=== PATIENT | female | born 1990 | race Caucasian/White ===

== ENCOUNTER 2017-02-19 12:14 | Inpatient (IN) | payer MEDICAID, OTHER ==
[2017-02-19] VITALS (14 sets, daily range): BP systolic 105–119; BP diastolic 51–72; PULSE 63–83; RESP 14–18; TEMP 97.9–98.9
[~2017-02-19] VITALS: Ht 154.9 cm; Wt 91.0 kg
[~2017-02-19 12:14] MED LIST: PREN1CAP33 PO
[2017-02-19] MEDS ORDERED: LIDOCAINE HCL 1% 50 ML VIAL I-DERMAL PRN (12:45)
[2017-02-19] MEDS ORDERED: CITRIC ACID-SODIUM CITRATE LIQ 30 ML UDC PO SCH (12:45)
[2017-02-19] MEDS ORDERED: MINERAL OIL 10 ML VIAL TOPICAL PRN (12:45)
[2017-02-19] MEDS ORDERED: LIDOCAINE HCL 1% 50 ML VIAL INFIL PRN (12:45)
[2017-02-19] MEDS ORDERED: LACTATED RINGER'S 1000 ML INJ 1,000 ML IV PRN (12:45)
[2017-02-19] MEDS: OXYTOCIN 30 UNITS-500ML PREMIX 500 ML IV ONE (12:45)
[2017-02-19] MEDS ORDERED: SODIUM CHLORID 0.9% 500 ML INJ 500 ML IV PRN (12:45)
--- NOTE | 2017-02-19 12:48 | PD ---
HPI Chief Complaint Leaking fluid Date Seen: Feb 19, 2017 (Kristi Martin MD, R3) Travel History International Travel<30 Days: No Contact w/Intl Traveler<30Days: No Known Affected Area: No (Kristi Martin MD, R3) History of Present Illness HPI Patient is a 26 year old at 39-6/7 weeks gestation who presents today for leaking fluid that started around 10:45 this morning. She also notes light vaginal bleeding and occasional contractions. care with [facility]. No complications with this . (Kristi Martin MD, R3) History Past Medical History Medical History: Denies Significant Hx (Kristi Martin MD, R3) Obstetric History Obstetric History (Kristi Martin MD, R3) Past Surgical History Surgical History: No Previous Surgery (Kristi Martin MD, R3) Family History Family History: Negative (Kristi Martin MD, R3) Social History Alcohol Use: No Tobacco Use: No Substance Abuse: No (Kristi Martin MD, R3) Allergies-Medications (Allergen,Severity, Reaction): Coded Allergies: No Known Allergies (Unverified , 02/19/17) Home Meds Reported Medications [no current meds] No Conflict Check 02/19/17 Discontinued Scripts Vit W/ Fe Polysacch C (Vitafol Fe+ 90-1-200 & 50 mg) 1 Cap Cap, 1 TAB PO DAILY, #30 BOTTLE 11 Refills Prov:Antoinette Banerjee 08/13/16 Review of Systems Except as stated in HPI: all other systems reviewed are Neg General / Constitutional: No: Fever, Chills Eyes: No: Blurred Vision, Visual changes HENT: No: Headaches Cardiovascular: No: Chest Pain or Discomfort, Palpitations Respiratory: No: Cough, Short of Breath Gastrointestinal: No: Nausea, Vomiting, Abdominal Pain Genitourinary: Discharge, No: Dysuria, Hematuria, Pelvic Pain, Vaginal Bleeding Musculoskeletal: No: Edema Neurologic: No: Headache Psychiatric: No: Substance Abuse (Kristi Martin MD, R3) Physical Exam Narrative GENERAL: Well-nourished, well-developed patient. SKIN: Warm and dry. HEAD: Normocephalic and atraumatic. EYES: No scleral icterus. No injection or drainage. ENT: No nasal drainage noted. Mucous membranes pink. Airway patent. NECK: Supple, trachea midline. No JVD. CARDIOVASCULAR: Regular rate and rhythm without murmurs, gallops, or rubs. RESPIRATORY: Breath sounds equal bilaterally. No accessory muscle use. ABDOMEN/GI: Abdomen soft, non-tender, bowel sounds present, no rebound, no guarding Gravid to 39 weeks size GENITOURINARY: External Genitalia: intact and normal in appearance BUS glands: normal Cervix: posterior Dilatation: I Effacement: 50 Station: -2 Presentation: vertex Membranes: SROM, clear Uterine Contractions: occasional FHT's: Category: I Baseline: 140 Reactive: + Variability: moderate Decels: none EXTREMITIES: No cyanosis or edema. BACK: Nontender without obvious deformity. No CVA tenderness. NEUROLOGICAL: Awake and alert. Motor and sensory grossly within normal limits. Normal speech. (Kristi Martin MD, R3) Data Data Vital Signs Reviewed: Yes Group B Strep: Negative (Kristi Martin MD, R3) MDM Medical Record Reviewed: Yes Narrative Course / MDM 26 year old at 39-6/7 weeks gestation. 1. IUP- Category I tracing, reassuring. 2. Labor- SROM, will start Cytotec for cervical ripening. 3. GBS negative. dw Dr. Dodd (Kristi Martin MD, R3) Attending Attestation Patient seen and evaluated with resident under direct supervision, agree with assessment and plan. (Michele Dodd MD) Kristi Martin MD, R3 Feb 19, 2017 12:48 Michele Dodd MD Feb 19, 2017 18:29
[2017-02-19] MEDS ORDERED: SODIUM CHLOR 0.9% 1000 ML INJ 1,000 ML OTHER PRN (12:56)
[2017-02-19] MEDS ORDERED: SODIUM CHLORIDE 0.9% FLUSH 10 ML FLUSH IV FLUSH PRN (13:00)
[2017-02-19] MEDS ORDERED: SODIUM CHLOR 0.9% 1000 ML INJ 1,000 ML IV PRN (13:05)
[2017-02-19] MEDS ORDERED: no current meds (13:41)
[2017-02-19] MEDS: LACTATED RINGER'S 1000 ML INJ 1,000 ML IV SCH ×2 (13:55→20:45)
[2017-02-19] MEDS ORDERED: MISOPROSTOL 25 MCG SUPP VAGINAL ONE (14:00)
[2017-02-19 14:04] LABS: AUTOMATED NEUTROPHIL # 6.1 TH/MM3 (1.8-7.7); BASOPHIL % 0.2 % (0.0-2.0); EOSINOPHIL # 0.1 TH/MM3 (0-0.4); EOSINOPHIL % 0.7 % (0.0-4.0); HEMATOCRIT 30.9 % (35.0-46.0); HEMO FLAGS DIFF FINAL; LYMPH % 22.6 % (9.0-44.0); LYMPHOCYTE # 1.9 TH/MM3 (1.0-4.8); MEAN CELL VOLUME 77.2 FL (80.0-100.0); MEAN CORPUSCULAR HGB CONC 32.4 % (32.0-36.0); MONO % 4.8 % (0.0-8.0); NEUT % 71.7 % (16.0-70.0); PLATELET COUNT 324 TH/MM3 (150-450); RED CELL DISTRIBUTION WIDTH 15.7 % (11.6-17.2); WHITE BLOOD COUNT 8.4 TH/MM3 (4.0-11.0)
[2017-02-19 15:08] LABS: BLOOD, URINE SMALL (NEG); COMMENT (UR) CULT NOT INDICATED; CULTURE IF INDICATED CULT NOT INDICATED; GLUCOSE,URINE NEG (NEG); KETONE, URINE NEG (NEG); NITRITE,URINE NEG (NEG); PH, URINE 5.5 (5.0-8.5); SQUAMOUS EPITHELIAL CELL URINE <1 /hpf (0-5); URINE COLOR LIGHT-YELLOW (YELLW/STRAW)
[2017-02-19] MEDS ORDERED: MISOPROSTOL 25 MCG SUPP VAGINAL PRN ×2 (18:00→21:00)
[2017-02-19] MEDS: SODIUM CHLORIDE 0.9% FLUSH 10 ML FLUSH IV FLUSH SCH (21:00)
[2017-02-20] VITALS (67 sets, daily range): BP systolic 89–142; BP diastolic 54–89; PULSE 63–154; RESP 16–20; TEMP 97.8–99.2; O2SAT 99–100
[2017-02-20] MEDS ORDERED: OXYTOCIN 30 UNITS-500ML PREMIX 500 ML IV SCH (00:45)
[2017-02-20] MEDS: OXYTOCIN 30 UNITS-500ML PREMIX 500 ML IV ONE (01:39)
[2017-02-20] MEDS: LACTATED RINGER'S 1000 ML INJ 1,000 ML IV SCH ×2 (05:27→12:45)
--- NOTE | 2017-02-20 08:58 | PD.LABORPN ---
Subjective Subjective The patient reports increasing contraction intensity. She declines pain medication at this time. Objective Vital Signs Vital Signs Date Time Temp Pulse Resp B/P (MAP) Pulse Ox O2 Delivery O2 Flow Rate FiO2 02/20/17 08:15 17 02/20/17 08:00 98.7 02/20/17 07:11 18 02/20/17 07:01 73 142/77 (98) 02/20/17 06:00 63 121/71 (88) 02/20/17 05:30 98.2 02/20/17 05:00 69 104/67 (79) 02/20/17 04:31 63 116/60 (78) 02/20/17 04:01 71 02/20/17 04:00 16 02/20/17 03:33 98.1 02/20/17 03:31 71 108/57 (74) 02/20/17 03:01 72 127/63 (84) 02/20/17 02:36 67 107/62 (77) 02/20/17 02:00 67 116/69 (85) 02/20/17 02:00 97.8 02/20/17 01:41 17 02/20/17 01:34 76 107/58 (74) 02/20/17 01:00 63 115/57 (76) Objective Pelvic Exam: Cervix: [IUPC placed-] Dilatation: [Four-] Effacement: [-90] Station: [-2-] Presentation: [Vertex-] Membranes: [ ruptured] Uterine Contractions: [Every 3-] FHT's: Category: [1-] Baseline: [-] Reactive: [-] Variability: [-] Decels: [-] Weeks Gestation: 40 Gest Age Assessed Date: Feb 20, 2017 Gest Age Assessed Time: 08:57 Pt started active labor?: No Medical induction of labor?: No Artificial rupture of membrane: No Assessment/Plan Assessment and Plan Assessment: Primigravida at 40 weeks' gestation today undergoing medical augmentation after spontaneous rupture membranes yesterday. Plan: Continue Pitocin augmentation. Michele Dodd MD Feb 20, 2017 08:58
[2017-02-20] MEDS: SODIUM CHLORIDE 0.9% FLUSH 10 ML FLUSH IV FLUSH SCH (09:00)
[2017-02-20] MEDS ORDERED: fentaNYL 2MCG-BUPIV 0.125% INJ 100 ML ONE (11:16)
[2017-02-20] MEDS ORDERED: ePHEDrine/NS 25 MG/5 ML SYR ONE (11:16)
[2017-02-20] MEDS ORDERED: TERBUTALINE INJ 1 MG/ML AMP ONE (12:32)
[2017-02-20] MEDS ORDERED: OXYTOCIN 10 UNIT/ML AMP ONE (12:45)
[2017-02-20] MEDS ORDERED: ceFAZolin INJ 1,000 MG VIAL ONE (12:46)
[2017-02-20 13:30] LABS: BLOOD GAS BASE EXCESS -5.5 mmol/L (-2-2); BLOOD GAS O2 HGB SATURATION 43 % (90-100); CORD BLOOD GAS HCO3 21 mmol/L (21-29); CORD BLOOD GAS PCO2 58 mmHG (34-78); CORD BLOOD GAS PH 7.19 (7.14-7.42); CORD BLOOD GAS PO2 27 mmHG (3.0-40.0); DRAW SITE CORD; STAT YES
[2017-02-20] MEDS ORDERED: OXYTOCIN 30 UNITS-500ML PREMIX 500 ML IV ONE (13:30)
[2017-02-20] MEDS ORDERED: SODIUM CHLORIDE 0.9% FLUSH 10 ML FLUSH IV FLUSH PRN (13:30)
[2017-02-20] MEDS ORDERED: ACETAMINOPHEN 1000 MG/100 ML 100 ML IV ONE (13:37)
[2017-02-20] MEDS ORDERED: fentaNYL CITRATE 250 MCG/5 ML AMP ONE (13:39)
[2017-02-20] MEDS ORDERED: MORPHINE SULFATE PF 5 MG/10 ML VIAL ONE (13:40)
[2017-02-20] MEDS ORDERED: ACETAMINOPHEN 325 MG TAB PO PRN (14:00)
[2017-02-20] MEDS ORDERED: KETOROLAC TROMETHAMINE 60 MG/2 ML (IM) VIAL IM PRN (14:00)
[2017-02-20] MEDS ORDERED: ONDANSETRON HCL 4 MG/2 ML VIAL IV PUSH PRN (14:00)
[2017-02-20] MEDS ORDERED: oxyCODONE/ACETAMINOPHEN 5 MG/325 MG TAB PO PRN (14:00)
--- NOTE | 2017-02-20 14:17 | RADRPT ---
EXAM DATE/TIME: 02/20/2017 13:01 [place] COMPARISON: No previous studies available for comparison. INDICATIONS : Instrument count , stat c/section. MEDICAL HISTORY : None. SURGICAL HISTORY : ENCOUNTER: Initial ACUITY: 1 day PAIN SCORE: Non-responsive. LOCATION: Bilateral abdominal FINDINGS: Supine view of the abdomen was performed. The abdominal bowel gas pattern is normal. No abnormal ma sses, calcifications, or organomegaly is seen. The osseous structures are unremarkable. CONCLUSION: No retained displacements or sponge. Findings were communicated by me to the operati ng room staff.. Hunter London MD FACR on February 20, 2017 at 14:15 Board Certified Radiologist. This report was verified electronically.
[2017-02-20] MEDS ORDERED: DEXAMETHASONE SOD PHOS 4 MG/ML VIAL IV ONE (14:20)
[2017-02-20] MEDS ORDERED: ONDANSETRON HCL 4 MG/2 ML VIAL IV PUSH ONE (14:20)
[2017-02-20] MEDS ORDERED: METOCLOPRAMIDE HCL SYRUP 10 MG/10 ML UDC OG-TUBE ONE (14:20)
[2017-02-20] MEDS ORDERED: LACTATED RINGER'S 1,000 ML BAG IV ONE (14:20)
[2017-02-20] MEDS ORDERED: EPIDURAL-DIPHENHYDRAMINE HCL 50 MG/ML VIAL IV PUSH PRN (16:30)
[2017-02-20] MEDS ORDERED: EPIDURAL-DIPHENHYDRAMINE HCL 50 MG CAP PO PRN (16:30)
[2017-02-20] MEDS ORDERED: EPIDURAL-DO NOT ADMINISTER ANTICOAGULANTS PRN (16:30)
[2017-02-20] MEDS ORDERED: EPIDURAL-NALOXONE HCL 0.4 MG/ML AMP IV PRN (16:30)
[2017-02-20] MEDS ORDERED: EPIDURAL-NO SYSTEMIC NARCOTICS PRN (16:30)
[2017-02-20] MEDS ORDERED: LACTATED RINGER'S 1000 ML INJ 1,000 ML IV SCH (18:24)
[2017-02-20] MEDS ORDERED: ZOLPIDEM TARTRATE 5 MG TAB PO PRN (21:00)
[2017-02-20] MEDS ORDERED: OXYTOCIN 30 UNITS-500ML PREMIX 500 ML IV PRN (23:30)
[2017-02-21] MEDS: IBUPROFEN 600 MG TAB PO PRN ×3 (01:12→19:55)
[2017-02-21] MEDS: oxyCODONE/ACETAMINOPHEN 5 MG/325 MG TAB PO PRN ×3 (01:12→19:56)
[2017-02-21 03:11] VITALS: BP 94/50; PULSE 80; RESP 20; TEMP 98.3; TEMP 98.7
[2017-02-21 08:13] VITALS: BP 91/54; PULSE 70; RESP 18; TEMP 97.7
--- NOTE | 2017-02-21 08:21 | HHI.OB ---
Subjective Post Operative Day: 1 Remarks POD 1 AF VSS pt doing well no problems , tolerating diet , ambulating Objective Vitals/I&O Vital Signs Date Time Temp Pulse Resp B/P (MAP) Pulse Ox O2 Delivery O2 Flow Rate FiO2 02/21/17 03:11 80 94/50 (65) 02/21/17 03:11 98.3 20 02/21/17 03:11 98.7 02/20/17 23:33 98.7 101 18 105/54 (71) 02/20/17 19:38 99.2 80 16 100/54 (69) 02/20/17 16:15 97.8 86 18 02/20/17 16:15 106/63 (77) 02/20/17 15:44 19 02/20/17 15:44 80 110/57 (74) 02/20/17 15:30 108/58 (75) 02/20/17 15:29 16 02/20/17 15:15 98.5 02/20/17 15:15 80 18 116/59 (78) 99 02/20/17 15:00 91 20 116/57 (76) 99 02/20/17 14:45 99 02/20/17 14:45 76 18 107/57 (74) 02/20/17 14:30 115/57 (76) 02/20/17 14:30 78 02/20/17 14:28 16 100 02/20/17 14:15 115/58 (77) 02/20/17 14:15 90 17 100 02/20/17 14:00 80 118/59 (78) 100 02/20/17 14:00 17 02/20/17 13:35 89 18 118/59 (78) 02/20/17 13:35 100 02/20/17 13:35 97.8 02/20/17 12:31 66 121/62 (81) 02/20/17 12:30 74 02/20/17 12:20 69 02/20/17 12:20 80 112/58 (76) 02/20/17 12:17 80 107/54 (71) 02/20/17 12:16 78 89/60 (70) 02/20/17 12:15 78 02/20/17 12:11 70 118/64 (82) 02/20/17 12:10 88 02/20/17 12:05 95 02/20/17 12:05 93 115/63 (80) 02/20/17 12:00 81 02/20/17 12:00 104/58 (73) 02/20/17 12:00 84 02/20/17 11:56 71 18 107/61 (76) 02/20/17 11:55 73 02/20/17 11:51 94 131/58 (82) 02/20/17 11:50 87 02/20/17 11:45 81 02/20/17 11:45 84 120/71 (87) 02/20/17 11:41 87 114/67 (83) 02/20/17 11:40 76 02/20/17 11:39 85 123/55 (77) 02/20/17 11:35 72 02/20/17 11:32 20 02/20/17 11:31 73 132/69 (90) 02/20/17 11:30 75 02/20/17 11:11 19 02/20/17 11:01 76 119/77 (91) 02/20/17 10:45 17 02/20/17 10:31 154 112/89 (97) 02/20/17 10:17 67 111/63 (79) 02/20/17 10:01 82 95/63 (74) 02/20/17 10:00 97.9 02/20/17 09:43 18 02/20/17 09:04 17 02/20/17 09:00 18 02/20/17 09:00 68 106/68 (81) 02/20/17 08:45 18 02/20/17 08:39 72 110/68 (82) Result Diagram: 02/19/17 1330 Objective Remarks GENERAL: Well-nourished, well-developed patient. CARDIOVASCULAR: Regular rate and rhythm without murmurs, gallops, or rubs. RESPIRATORY: Breath sounds equal bilaterally. No accessory muscle use. ABDOMEN/GI: Abdomen soft, non-tender, bowel sounds present. Incision: Clean, dry and intact. Fundus: Firm, non-tender at umbilicus. GENITOURINARY: Light to moderate bleeding. EXTREMITIES: No cyanosis or edema, non-tender, without signs of DVT. Medications and IVs Current Medications Medications (Trade) Dose Ordered Sig/Geovani Route Start Time Stop Time Status Last Admin Lactated Ringer's 1,000 ml @ 125 mls/hr Q8H IV 02/19/17 12:45 02/20/17 05:27 Lactated Ringer's 1,000 ml @ 3,000 mls/hr Q20M PRN IV 02/19/17 12:45 Sodium Chloride 500 ml @ 1,000 mls/hr ONCE PRN IV 02/19/17 12:45 02/21/17 12:44 Sodium Chloride 1,000 ml @ 100 mls/hr Q10H PRN IV 02/19/17 13:05 (Xylocaine 1% Inj (50 ml)) 0.1 ml UNSCH X1 PRN I-DERMAL 02/19/17 12:45 02/22/17 12:44 (Bicitra Liq) 30 ml [employer] PO 02/19/17 12:45 02/23/17 12:44 (fentaNYL INJ) 50 mcg Q1H PRN IV PUSH 02/19/17 12:45 02/20/17 07:08 (fentaNYL INJ) 100 mcg Q1H PRN IV PUSH 02/19/17 12:45 02/20/17 10:18 (Xylocaine 1% Inj (50 ml)) 10 ml UNSCH X1 PRN INFIL 02/19/17 12:45 02/21/17 12:44 (Muri-Lube Oil) 10 ml UNSCH PRN TOPICAL 02/19/17 12:45 (NS Flush) 2 ml BID IV FLUSH 02/19/17 21:00 (NS Flush) 2 ml UNSCH PRN IV FLUSH 02/19/17 13:00 Oxytocin 500 ml @ 0 mls/hr TITRATE IV 02/20/17 00:45 02/20/17 05:21 Lactated Ringer's 1,000 ml @ 100 mls/hr Q10H IV 02/20/17 18:24 02/21/17 14:23 02/20/17 21:17 Oxytocin 500 ml @ 100 mls/hr UNSCH X1 PRN IV 02/20/17 23:30 02/21/17 23:29 (NS Flush) 2 ml BID IV FLUSH 02/20/17 21:00 (NS Flush) 2 ml UNSCH PRN IV FLUSH 02/20/17 13:30 (Mylicon Chew) 80 mg QID PRN PO 02/20/17 14:00 (Tylenol) 650 mg Q6H PRN PO 02/20/17 14:00 (Motrin) 600 mg Q6HR PRN PO 02/20/17 14:00 02/21/17 01:12 (Toradol Inj) 30 mg Q6H PRN IM 02/20/17 14:00 02/21/17 13:59 (Percocet 5-325 Mg) 1 tab Q4H PRN PO 02/20/17 14:00 (Percocet 5-325 Mg) 2 tab Q4H PRN PO 02/20/17 14:00 02/21/17 01:12 (Yojana-Colace) 2 tab Q12HR PRN PO 02/20/17 21:00 (Ambien) 5 mg HS PRN PO 02/20/17 21:00 (M-M-R Ii Inj) 0.5 ml ONCE ONCE SQ 02/21/17 16:00 02/21/17 16:01 (Boostrix Inj) 0.5 ml ONCE ONCE IM 02/21/17 16:00 02/21/17 16:01 (Zofran Inj) 4 mg Q6H PRN IV PUSH 02/20/17 14:00 Miscellaneous Information NO SYSTEMIC NARCOTICS TO BE GIVEN FO... UNSCH PRN .XX 02/20/17 16:30 02/21/17 16:29 (Narcan Inj) 0.4 mg UNSCH PRN IV 02/20/17 16:30 02/21/17 16:29 (Benadryl Inj) 25 mg Q6H PRN IV PUSH 02/20/17 16:30 02/21/17 16:29 (Benadryl) 50 mg Q6H PRN PO 02/20/17 16:30 02/21/17 16:29 Miscellaneous Information ALL NURSING DEPARTMENTS UNSCH PRN .XX 02/20/17 16:30 02/21/17 16:29 Assessment/Plan Assessment and Plan Postop day 1. due to bradycardia persistent Patient doing well this time with advancement of diet and ambulation bandages dry bowel sounds are normal Plan progressive postop care and advancement per usual protocol plan probably discharge home tomorrow Drew David II, MD Feb 21, 2017 08:21
[2017-02-21 09:30] LABS: AUTOMATED NEUTROPHIL # 10.3 TH/MM3 (1.8-7.7); BASOPHIL % 0.2 % (0.0-2.0); EOSINOPHIL % 0.1 % (0.0-4.0); HEMATOCRIT 22.6 % (35.0-46.0); HEMO FLAGS DIFF FINAL; LYMPH % 21.1 % (9.0-44.0); MEAN CELL VOLUME 77.3 FL (80.0-100.0); MEAN CORPUSCULAR HEMOGLOBIN 25.2 PG (27.0-34.0); MEAN CORPUSCULAR HGB CONC 32.7 % (32.0-36.0); NEUT % 71.6 % (16.0-70.0); PLATELET COUNT 273 TH/MM3 (150-450); RED BLOOD COUNT 2.92 MIL/MM3 (4.00-5.30); WHITE BLOOD COUNT 14.4 TH/MM3 (4.0-11.0)
[2017-02-21] MEDS: DOCUSATE SODIUM 50 MG/SENNA 8.6 MG TAB PO PRN (10:45)
[2017-02-21] MEDS ORDERED: MEASLES, MUMPS, RUBELLA VACCINE 0.5 ML VIAL SQ ONE (16:00)
[2017-02-21] MEDS ORDERED: DIPHTH/TETANUS/ACEL PERTUSSIS (BOOSTER) 0.5 ML VIAL/PFS IM ONE (16:00)
[2017-02-21] MEDS: SIMETHICONE 80 MG CHEWABLE TAB PO PRN (20:03)
[2017-02-21] MEDS: SODIUM CHLORIDE 0.9% FLUSH 10 ML FLUSH IV FLUSH SCH ×2 (20:33)
[2017-02-21] MEDS: LACTATED RINGER'S 1000 ML INJ 1,000 ML IV SCH (20:33)
[2017-02-21 21:20] VITALS: BP 111/60; PULSE 94; RESP 18; TEMP 98.4
[2017-02-22] MEDS: LACTATED RINGER'S 1000 ML INJ 1,000 ML IV SCH ×2 (03:55→20:45)
[2017-02-22] MEDS: IBUPROFEN 600 MG TAB PO PRN ×3 (05:37→23:12)
[2017-02-22] MEDS: DOCUSATE SODIUM 50 MG/SENNA 8.6 MG TAB PO PRN ×2 (05:37→23:12)
[2017-02-22] MEDS: oxyCODONE/ACETAMINOPHEN 5 MG/325 MG TAB PO PRN ×3 (05:37→23:13)
[2017-02-22] MEDS: SIMETHICONE 80 MG CHEWABLE TAB PO PRN (05:38)
[2017-02-22 07:30] VITALS: BP 118/79; PULSE 98; RESP 16; TEMP 98.3
--- NOTE | 2017-02-22 09:29 | HHI.OB ---
Subjective Post Operative Day: 2 Remarks Postoperative day number 2. AFVSS overnight. Pain enema. Incision not draining. Decreased lochia. Denies dysuria. No breast tenderness. Appetite good. No nausea or vomiting. [-] flatus. [-] bowel movement. Ambulating well. Denies calf pain, shortness of breath, or cough. Otherwise, she is doing well this morning and has no other complaints. Objective Vitals/I&O Vital Signs Date Time Temp Pulse Resp B/P (MAP) Pulse Ox O2 Delivery O2 Flow Rate FiO2 02/22/17 07:30 98.3 98 16 118/79 (92) 02/21/17 21:20 98.4 94 18 111/60 (77) Result Diagram: 02/21/17 0911 Objective Remarks GENERAL: Well-nourished, well-developed patient. CARDIOVASCULAR: Regular rate and rhythm without murmurs, gallops, or rubs. RESPIRATORY: Breath sounds equal bilaterally. No accessory muscle use. ABDOMEN/GI: Abdomen soft, non-tender, bowel sounds present. Incision: Clean, dry and intact. Fundus: Firm, non-tender at umbilicus. GENITOURINARY: Light to moderate bleeding. EXTREMITIES: No cyanosis or edema, non-tender, without signs of DVT. Medications and IVs Current Medications Medications (Trade) Dose Ordered Sig/Geovani Route Start Time Stop Time Status Last Admin Lactated Ringer's 1,000 ml @ 125 mls/hr Q8H IV 02/19/17 12:45 02/20/17 05:27 Lactated Ringer's 1,000 ml @ 3,000 mls/hr Q20M PRN IV 02/19/17 12:45 Sodium Chloride 1,000 ml @ 100 mls/hr Q10H PRN IV 02/19/17 13:05 (Xylocaine 1% Inj (50 ml)) 0.1 ml UNSCH X1 PRN I-DERMAL 02/19/17 12:45 02/22/17 12:44 (Bicitra Liq) 30 ml DOG WARDEN PO 02/19/17 12:45 02/23/17 12:44 (fentaNYL INJ) 50 mcg Q1H PRN IV PUSH 02/19/17 12:45 02/20/17 07:08 (fentaNYL INJ) 100 mcg Q1H PRN IV PUSH 02/19/17 12:45 02/20/17 10:18 (Muri-Lube Oil) 10 ml UNSCH PRN TOPICAL 02/19/17 12:45 (NS Flush) 2 ml BID IV FLUSH 02/19/17 21:00 (NS Flush) 2 ml UNSCH PRN IV FLUSH 02/19/17 13:00 Oxytocin 500 ml @ 0 mls/hr TITRATE IV 02/20/17 00:45 02/20/17 05:21 (NS Flush) 2 ml BID IV FLUSH 02/20/17 21:00 (NS Flush) 2 ml UNSCH PRN IV FLUSH 02/20/17 13:30 (Mylicon Chew) 80 mg QID PRN PO 02/20/17 14:00 02/22/17 05:38 (Tylenol) 650 mg Q6H PRN PO 02/20/17 14:00 (Motrin) 600 mg Q6HR PRN PO 02/20/17 14:00 02/22/17 05:37 (Percocet 5-325 Mg) 1 tab Q4H PRN PO 02/20/17 14:00 (Percocet 5-325 Mg) 2 tab Q4H PRN PO 02/20/17 14:00 02/22/17 05:37 (Yojana-Colace) 2 tab Q12HR PRN PO 02/20/17 21:00 02/22/17 05:37 (Ambien) 5 mg HS PRN PO 02/20/17 21:00 (Zofran Inj) 4 mg Q6H PRN IV PUSH 02/20/17 14:00 Assessment/Plan Assessment and Plan 26 y/o female who is POD# 2 s/p CXN due to persistent bradycardia. -Continue routine care. -Percocet and Motrin PRN pain. -Encouraged OOB. Advised pelvic rest for 6 wks. Will need a f/u appt. in 1 wk for incision check. -Re: ctrl, she would like OCP, pt will discuss with her outpatient OB. -D/c today/tomorrow. [facility] OB attending Sylwia Cisneros MD R1 Feb 22, 2017 09:29
[2017-02-22] MEDS: SODIUM CHLORIDE 0.9% FLUSH 10 ML FLUSH IV FLUSH SCH ×2 (20:50)
[2017-02-22 21:00] VITALS: BP 109/58; PULSE 86; RESP 20; TEMP 98.9
[2017-02-23] MEDS: LACTATED RINGER'S 1000 ML INJ 1,000 ML IV SCH (04:04)
--- NOTE | 2017-02-23 07:39 | MP ---
cc: CÉSAR DAVID MD DATE OF SURGERY 02/20/2017 PREOPERATIVE DIAGNOSIS Term intrauterine with spontaneous rupture of membranes and induction of labor with bradycardia persistent. POSTOPERATIVE DIAGNOSIS Term intrauterine with spontaneous rupture of membranes and induction of labor with bradycardia persistent. PROCEDURE PERFORMED Emergent low transverse section. SURGEON César David MD ANESTHESIA Epidural PREOP NOTE The patient is a 26-year-old G1, P0 at 40-weeks who presented to labor and delivery with spontaneous rupture of membranes. She was 1-cm dilated at that time and a labor induction was begun. She contracted well and had internal monitors. She achieved a cervical dilation to 5-cm, but was persistently having fairly large variable decels with each contraction. Amnion infusion was attempted, but the patient developed a bradycardic episode that would not respond to any measures. After 7-8 minutes of this attempt to intrauterine resuscitate, it was felt the patient needed a section for delivery. PROCEDURE The patient was taken to the operating room in an emergent situation. General anesthetic was done in a rapid sequence induction. She was prepped and draped prior to intubation. A transverse incision was made in the abdomen and carried through the fascia sharply. The fascia was dissected off the rectus muscle and the rectus split in the midline. The incision was extended superiorly and inferiorly. The bladder blade was placed at the lower edge of the incision and the visceral peritoneum reflected down off the lower uterine segment placed on the bladder blade. A transverse hysterotomy was made and extended bluntly bilaterally. The baby was in OP presentation. Fluid was clear. The baby was delivered at 12:44 p.m. female, weight 3100 grams, 's 8 and 9. There were no complications with delivery. Cord blood pH was obtained and is pending at the time of this dictation. The placenta was manually extracted. The uterus exteriorized. The hysterotomy closed with a running layer of 0 chromic followed by imbricating suture of same. Hemostasis was achieved and the bladder reapproximated with running 2-0 Vicryl. Blood suctioned from the cul-de-sac gutters. The uterus, tubes and ovaries all within normal limits. The uterine was replaced in the peritoneal cavity. The parietoperitoneum closed in a running layer with of 2-0 Vicryl. The muscle reapproximated with stick-ties of Vicryl and chromic. The fascia was closed in a running layer of 0 Vicryl. The subcutaneous tissues were reapproximated with 3-0 plain suture and a running sutures. Skin closed with 4-0 Monocryl in the subcuticular stitch. Steri-Strips applied. ESTIMATED BLOOD LOSS 500 cc COMPLICATIONS There were no complications. Sponge, needle and instrument counts were correct x 2. The patient was taken to Recovery in stable condition. MD URIAH Mckinney/ADILSON /1:21 PM /7:22 AM
[2017-02-23 08:00] VITALS: BP 106/69; PULSE 81; RESP 16; TEMP 97.8
[2017-02-23] MEDS: IBUPROFEN 600 MG TAB PO PRN (08:03)
[2017-02-23] MEDS: DOCUSATE SODIUM 50 MG/SENNA 8.6 MG TAB PO PRN (08:03)
[2017-02-23] MEDS: oxyCODONE/ACETAMINOPHEN 5 MG/325 MG TAB PO PRN ×2 (08:05→12:01)
[2017-02-23] MEDS ORDERED: IBUP-232 PO (08:09)
[2017-02-23] MEDS ORDERED: OXYC1TAB63 PO (08:09)
[2017-02-23] MEDS ORDERED: SENN1TAB PO (08:09)
--- NOTE | 2017-02-23 08:10 | HHI.DCPOC ---
Discharge Care Plan Diagnosis: (1) Delivery by section of full-term infant Report Symptoms to Your Doctor -Temperature above 100.5 degrees -Redness, of incision or excessive or foul smelling drainage -Unusual pain or calf pain -Increased vaginal bleeding -Painful or difficulty urinating -Feelings of extreme sadness or anxiety after 2 weeks Goals to Promote Your Health * To prevent worsening of your condition and complications * To maintain your health at the optimal level Directions to Meet Your Goals Take your medications as prescribed Follow your dietary instruction Follow activity as directed Ensure plenty of rest for recovery Drink fluids for hydration Keep your appointments as scheduled Take your immunizations and boosters as scheduled If your symptoms worsen call your PCP, if no PCP go to Urgent Care Center or Emergency Room Smoking is Dangerous to Your Health. Avoid second hand smoke Call the 24-hour crisis hotline for domestic abuse at Jelani Zarate MD R2 Feb 23, 2017 08:10
--- NOTE | 2017-02-23 08:14 | HHI.OB ---
Subjective Post Operative Day: 3 Remarks Pt seen and examined this morning. Post-Operative day # 3 AFVSS overnight. Incision nondraining. Decreased lochia. Denies dysuria. No breast tenderness. She is feeding the baby via breast. Appetite good. No nausea or vomiting. Patient has not yet had a bowel movement, but has had bowel gas. She states that this is her baseline. Ambulating well. Denies calf pain or shortness of breath. Otherwise, she is doing well this morning and has no other concerns. Objective Vitals/I&O Vital Signs Date Time Temp Pulse Resp B/P (MAP) Pulse Ox O2 Delivery O2 Flow Rate FiO2 02/22/17 21:00 86 109/58 (75) 02/22/17 21:00 98.9 20 Result Diagram: 02/21/17 0911 Objective Remarks GENERAL: Well-nourished, well-developed patient. CARDIOVASCULAR: Regular rate and rhythm without murmurs, gallops, or rubs. RESPIRATORY: Breath sounds equal bilaterally. No accessory muscle use. ABDOMEN/GI: Abdomen soft, non-tender, bowel sounds present. Incision: Clean, dry and intact. Fundus: Firm, non-tender at umbilicus. GENITOURINARY: Light to moderate bleeding. EXTREMITIES: No cyanosis or edema, non-tender, without signs of DVT. Medications and IVs Current Medications Medications (Trade) Dose Ordered Sig/Geovani Route Start Time Stop Time Status Last Admin Lactated Ringer's 1,000 ml @ 125 mls/hr Q8H IV 02/19/17 12:45 02/20/17 05:27 Lactated Ringer's 1,000 ml @ 3,000 mls/hr Q20M PRN IV 02/19/17 12:45 Sodium Chloride 1,000 ml @ 100 mls/hr Q10H PRN IV 02/19/17 13:05 (Bicitra Liq) 30 ml [employer] PO 02/19/17 12:45 02/23/17 12:44 (fentaNYL INJ) 50 mcg Q1H PRN IV PUSH 02/19/17 12:45 02/20/17 07:08 (fentaNYL INJ) 100 mcg Q1H PRN IV PUSH 02/19/17 12:45 02/20/17 10:18 (Muri-Lube Oil) 10 ml UNSCH PRN TOPICAL 02/19/17 12:45 (NS Flush) 2 ml BID IV FLUSH 02/19/17 21:00 (NS Flush) 2 ml UNSCH PRN IV FLUSH 02/19/17 13:00 Oxytocin 500 ml @ 0 mls/hr TITRATE IV 02/20/17 00:45 02/20/17 05:21 (NS Flush) 2 ml BID IV FLUSH 02/20/17 21:00 (NS Flush) 2 ml UNSCH PRN IV FLUSH 02/20/17 13:30 (Mylicon Chew) 80 mg QID PRN PO 02/20/17 14:00 02/22/17 05:38 (Tylenol) 650 mg Q6H PRN PO 02/20/17 14:00 (Motrin) 600 mg Q6HR PRN PO 02/20/17 14:00 02/23/17 08:03 (Percocet 5-325 Mg) 1 tab Q4H PRN PO 02/20/17 14:00 (Percocet 5-325 Mg) 2 tab Q4H PRN PO 02/20/17 14:00 02/23/17 08:05 (Yojana-Colace) 2 tab Q12HR PRN PO 02/20/17 21:00 02/23/17 08:03 (Ambien) 5 mg HS PRN PO 02/20/17 21:00 (Zofran Inj) 4 mg Q6H PRN IV PUSH 02/20/17 14:00 Assessment/Plan Problem List: (1) Delivery by section of full-term infant ICD Codes: O82 - Encounter for delivery without indication Assessment and Plan 26 y/o female who is POD# 3 s/p CXN due to persistent bradycardia. -Continue routine care. -Percocet and Motrin PRN pain. -Encouraged OOB. Advised pelvic rest for 6 wks. Will need a f/u appt. in 1 wk for incision check. -Re: ctrl, she would like OCP, pt will discuss with her outpatient OB. -D/c today with baby DW: Dr. David Discharge Planning Today, 02/23 Jelani Zarate MD R2 Feb 23, 2017 08:14
[2017-03-29] MEDS ORDERED: ORTHTAB4 PO (14:25)
== END 2017-02-23 14:10 | disposition home or self-care (01) | DRG 766 ==
LOC: HOBED 12:14 → H2EA 12:58 → H1EA 02-20 16:08
PROVIDERS: ADMIT Obstetrics & Gynecology; ATTEND Obstetrics & Gynecology
PROC: 10D00Z1 Extraction of Products of Conception, Low, Open Approach (ICD-10-PCS; principal; 2017-02-20)
PROC: 3E0E77Z Introduction of Electrolytic and Water Balance Substance into Products of Conception, Via Natural or Artificial Opening (ICD-10-PCS; 2017-02-20)
DX: O76 Abnormality in fetal heart rate and rhythm complicating labor and delivery (principal); Z37.0 Single live birth; Z3A.39 39 weeks gestation of pregnancy
CPT/HCPCS: 59025; 74000; 76815; 81001; 82805; 84112; 85025; 86900; 86901; 88307; 90715; J0131; J0690; J1100; J2274; J2405; J2590; J3010; J3105; J7120